=== PATIENT | female | born 1965 | race Caucasian/White ===

== ENCOUNTER → 2024-10-24 | Day surgery (SDC) | payer BC | END | disposition home or self-care (01) | LOC: JRADUS-SUR 12:24 | PROVIDERS: ATTEND Specialist | PROC: 0H9U3ZX Drainage of Left Breast, Percutaneous Approach, Diagnostic (ICD-10-PCS; principal; 2024-10-24) | DX: N63.10 Unspecified lump in the right breast, unspecified quadrant (principal); Z53.8 Procedure and treatment not carried out for other reasons | CPT/HCPCS: 19083; 76942-TC; 87899 ==